=== PATIENT | female | born 1995 | race Caucasian/White ===

== ENCOUNTER 2024-04-27 08:06 | Emergency (ER) | payer MEDICAID, SELFPAY ==
[2024-04-27 08:14] VITALS: BP 136/104; PULSE 82; RESP 18; TEMP 37.1; O2SAT 99; BMI 30.7
--- NOTE | 2024-04-27 08:21 | CRLHL7_ITS ---
For Patients: As a result of the Cures Act, medical imaging exams and procedure reports are released immediately into your electronic medical record. You may view this report before your referring provider. If you have questions, please contact your health care provider. INDICATION: Injury, not otherwise specified. COMPARISON: None available. TECHNIQUE: Views: 3 FINDINGS: Mineralization: Normal. Alignment: Normal. Bones and Joints: No fracture is identified. Soft Tissues: Unremarkable. IMPRESSION: No acute traumatic injury is identified. Dictated by Paul Steele MD @ 04/27/2024 8:48:27 AM (Electronically Signed)
--- NOTE | 2024-04-27 08:23 | ED_ITS ---
HPI - Extremity Injury (Lower) General Chief Complaint: Extremity Pain/Injury, Lower Stated Complaint: LT big toe injury Time Seen by Provider: 04/27/24 08:17 History of Present Illness HPI Narrative: This 28-year-old female comes in with an injury to her left foot. She states that she was barefoot and attempted to step on the dog's leash as the dog was running away. They 80 lb dog yanked on the leash and she has an injury to her left foot. The leash wrapped from the bottom of her foot around to the top through the web space between the great toe and the 2nd toe and across the lateral aspect of her foot. She has superficial abrasion and erythema where the leash rubbed on her skin. She is ambulatory. She does not report any other injury. Related Data Home Medications ?Medication ?Instructions ?Recorded ?Confirmed No Known Home Medications 04/27/24 04/27/24 Allergies Allergy/AdvReac Type Severity Reaction Status Date / Time No Known Drug Allergies Allergy Verified 04/27/24 08:17 Review of Systems Status of ROS: Reports: 10 or more systems reviewed and unremarkable except as noted in History and below Narrative: Constitutional: No fevers, no weight gain or loss. Eyes: No discharge. No vision changes. HENT: No congestion, no sore throat, no ear pain. Cardiovascular: No chest pain, no palpitations. Respiratory: No shortness of breath, no wheezes, no cough. Gastrointestinal: No abdominal pain, no vomiting, no diarrhea. Genitourinary: No dysuria, no hematuria. Musculoskeletal: Normal range of motion. Skin: No rashes, no pruritis. Neurological: No dizziness, weakness, sensory change, speech change. Endo/Heme/Allergies: No bruising or bleeding. No polydipsia. Pysch: no suicidality, no anxiety, no insomnia. All other systems reviewed and are negative. Exam Narrative: Exam Narrative: Constitutional: Well-developed, well-nourished, no acute distress. HEENT: Normocephalic, atraumatic. Neck: Normal range of motion. Nontender. Supple. Heart: Regular. No murmurs. Normal rate. Intact distal pulses. Lungs: Clear to auscultation. No chest discomfort. No wheezes, rhonchi, or rales. Abdomen: Normal bowel sounds. Nontender. No rebound tenderness. Genitalia: Deferred. Back: No midline tenderness. Normal range of motion. Extremities: Normal range of motion. The superficial abrasion on the dorsal aspect of the left foot. No laceration. No swelling or sign of deformity. Skin: Intact. No rash. Warm. No erythema or pallor. Neurologic: No altered sensation. No weakness. Alert and oriented. Psychiatric: No suicidality. No anxiety or depression. No insomnia. Nursing notes and vitals signs are reviewed. Const: Vital Signs, click to edit/add: Vital Signs - 24 hr 04/27/24 08:14 Temperature 98.7 F Pulse Rate [Left P ulse Oximeter] 82 Respiratory Rate 18 Blood Pressure [Le ft Upper Arm] 136/104 H Pulse Oximetry 99 Oxygen Delivery Me thod Room Air Course Vital Signs Vital signs: Initial Vital Signs Temperature 98.7 F 04/27/24 08:14 Temperature Source Temporal Artery Scan 04/27/24 08:14 Pulse Rate 82 04/27/24 08:14 Pulse Rhythm Regular 04/27/24 08:14 Pulse Strength 3+ Normal 04/27/24 08:14 Respiratory Rate 18 04/27/24 08:14 Blood Pressure 136/104 H 04/27/24 08:14 Blood Pressure Mean 114 H 04/27/24 08:14 Blood Pressure Position Sitting 04/27/24 08:14 Pulse Oximetry 99 04/27/24 08:14 Oxygen Delivery Method Room Air 04/27/24 08:14 Vital Signs Temperature 98.7 F 04/27/24 08:14 Pulse Rate 82 04/27/24 08:14 Respiratory Rate 18 04/27/24 08:14 Blood Pressure 136/104 H 04/27/24 08:14 Pulse Oximetry 99 04/27/24 08:14 Oxygen Delivery Method Room Air 04/27/24 08:14 Temperature 98.7 F 04/27/24 08:14 Pulse Rate 82 04/27/24 08:14 Respiratory Rate 18 04/27/24 08:14 Blood Pressure 136/104 H 04/27/24 08:14 Pulse Oximetry 99 04/27/24 08:14 Oxygen Delivery Method Room Air 04/27/24 08:14 MDM - Extremity Injury (Lower) MDM Narrative Medical decision making narrative: This patient comes in for evaluation of an injury to her left foot. X-ray imaging is negative for any acute findings. The patient has an abrasion across the dorsal aspect of her foot that does not need any repair or retention. There is no bleeding from this wound. The abrasion is superficial. She is ambulatory. She did receive an Carlos Alberto wrap. She will use [id number] medicines as needed and directed. Imaging Data XR L Foot: Radiologist's impression: No acute traumatic injury is identified. Discharge Plan Discharge Clinical Impression: Foot injury Patient Disposition: Home, Self-Care Condition: Stable Additional Instructions: Increase activity as tolerated. Use [id number] medicines as needed and directed. Follow up with MD as needed. Prescriptions: No Action No Known Home Medications Follow Up/Referrals: Provider,Not a Local [Primary Care Provider] - Stand Alone Forms: Talking Data Info Instructions
== END 2024-04-27 09:29 | disposition home or self-care (01) ==
PROVIDERS: Emergency Provider Emergency Medicine Emergency Medical Services
DX: M79.672 Pain in left foot (principal); W22.8XXA Striking against or struck by other objects, initial encounter
CPT/HCPCS: 73630; 99283; 99284

== ENCOUNTER 2024-08-15 12:42 | Outpatient (CLI) | payer MEDICAID, SELFPAY ==
--- NOTE | 2024-08-15 13:00 | CRLHL7_ITS ---
For Patients: As a result of the Century Cures Act, medical imaging exams and procedure reports are released immediately into your electronic medical record. You may view this report before your referring provider. If you have questions, please contact your health care provider. INDICATION: First trimester scan, establish dates. COMPARISON: None. TECHNIQUE: Real-time vazquez-scale imaging of the pelvis was performed. FINDINGS: Sonographic imaging demonstrates a single living intrauterine gestation. The embryo demonstrates a regular cardiac rate measuring 176 beats per minute. The embryo`s crown-rump length measurement of 2.6 cm corresponds to a gestational age of 9 weeks 3 days with a sonographic due date of 03/17/2025. There is a normal-appearing yolk sac. There are no gross abnormalities noted within the embryo at this early state of development. The gestational sac has a normal appearance. There is no evidence of a perigestational hemorrhage. The amount of fluid within the sac appears appropriate for gestational age. The cervix is closed. The myometrium appears normal. The ovaries are of normal size. Corpus luteal cyst right ovary. There are no suspicious fluid collections noted in the cul-de-sac. IMPRESSION: Single living intrauterine with sonographic gestational age 9 weeks 3 days and sonographic due date 03/17/2025. Dictated by Jelani Fierro MD @ 08/15/2024 1:33:09 PM (Electronically Signed)
== END 2024-08-15 12:43 | disposition home or self-care (01) ==
LOC: US 12:44
PROVIDERS: Visit Provider Physician Assistant
DX: Z34.91 Encounter for supervision of normal pregnancy, unspecified, first trimester (principal); Z3A.09 9 weeks gestation of pregnancy
CPT/HCPCS: 76817

== ENCOUNTER 2024-08-15 15:07 | Outpatient (CLI) | payer MEDICAID, SELFPAY ==
[2024-08-15 22:30] LABS: Chlamydia DNA Amplified* NOT DETECTED (No Detected); GC DNA Amplified* NOT DETECTED (No Detected)
[2024-08-18 09:14] LABS: HPV Source Cervix; HPV, High Risk by TMA Not Detected
== END 2024-08-15 15:08 | disposition home or self-care (01) ==
PROVIDERS: Visit Provider Physician Assistant
DX: Z34.81 Encounter for supervision of other normal pregnancy, first trimester (principal); Z67.10 Type A blood, Rh positive
CPT/HCPCS: 83020; 83021; 85660; 86592; 86703; 86704; 86706; 86762; 86787; 86803; 86850; 86900; 86901; 87086; 87340; 87491; 87591; 87624; 87625; 88141; 88142

== ENCOUNTER 2024-10-27 12:12 | Outpatient (CLI) | payer MEDICAID, SELFPAY ==
--- NOTE | 2024-10-27 12:15 | CRLHL7_ITS ---
For Patients: As a result of the Century Cures Act, medical imaging exams and procedure reports are released immediately into your electronic medical record. You may view this report before your referring provider. If you have questions, please contact your health care provider. INDICATION: 2nd trimester anatomical survey. TECHNIQUE: Ultrasound OB pelvis transabdominal. Real-time vazquez-scale imaging of the fetus was performed as well as color Doppler analysis of the umbilical artery. COMPARISON: Ob ultrasound 08/15/2024 FINDINGS: Intrauterine gestation: Single. heart rate: Regular, 139 bpm. presentation: Variable. Placenta: Anterior, without previa. Cervix: 4.3 cm and closed. Amniotic fluid: 5.6 cm deepest pocket. Biometry: Biparietal diameter: 4.7 cm, 20 week 2 days. Head circumference: 17.5 cm, 20 weeks 0 days. Abdominal circumference: 15.5 cm, 20 weeks 5 days. Femoral length: 3.3 cm, 20 week 1 day. EFW: 352.3 gm, 61 %. Anatomical Survey: 4 chamber heart: Visualized. Stomach: Visualized. Kidneys: Visualized. Bladder: Visualized. Spine: Visualized. Sacrum: Visualized. 4 extremities: Visualized. Cord insertion: Visualized. 3V cord: Visualized. Face: Visualized. Nose: Visualized. Lips: Visualized. Cerebellum: Visualized. Cisterna Magna: Visualized. Lateral ventricles: Visualized. IMPRESSION: 1. Single viable intrauterine . Gestational age by ultrasound of 20 weeks 4 days with JUAN J of 03/12/2025. weight in the 61%. 2. No intrinsic abnormalities noted on anatomic survey. Dictated by Katharine Howell MD @ 10/30/2024 12:27:44 PM (Electronically Signed)
== END 2024-10-27 12:13 | disposition home or self-care (01) ==
LOC: US 12:12
PROVIDERS: Visit Provider Obstetrics & Gynecology
DX: Z34.92 Encounter for supervision of normal pregnancy, unspecified, second trimester (principal); Z3A.20 20 weeks gestation of pregnancy
CPT/HCPCS: 76805

== ENCOUNTER 2024-12-22 07:59 | Outpatient (CLI) | payer MEDICAID, SELFPAY | END 2024-12-22 08:00 | disposition home or self-care (01) | LOC: NFLDREF 12-29 00:19 | PROVIDERS: Visit Provider Obstetrics & Gynecology | DX: Z34.83 Encounter for supervision of other normal pregnancy, third trimester (principal) | CPT/HCPCS: 86592 ==

== ENCOUNTER 2025-01-22 13:11 | Outpatient (CLI) | payer MEDICAID, SELFPAY ==
--- NOTE | 2025-01-22 14:00 | CRLHL7_ITS ---
For Patients: As a result of the Century Cures Act, medical imaging exams and procedure reports are released immediately into your electronic medical record. You may view this report before your referring provider. If you have questions, please contact your health care provider. OBSTETRICAL ULTRASOUND, 01/22/2025 JUAN J by LMP: 03/15/2025. GA: 32 w, 4 d. Single. Comparison: 10/27/2024. INDICATION: Uterine size date discrepancy. TECHNIQUE: Real time vazquez scale imaging of the fetus was performed. Transabdominal CERVIX: Not visualized. POSITIONING: Vertex. AMNIOTIC FLUID: 27.2 cm. CONY. 10.4 SDP (N: greater than 2 x 1 cm) PLACENTA: Technique: Transabdominal. PLACENTA POSITION: Anterior. DOPPLER: heart rate: 149 bpm. BIOMETRY: BPD: 8.4 cm. 33 w, 5 d, 76 percent. HC: 30.2 cm. 33 w, 4 d, 36 percent. AC: 29.5 cm. 33 w, 4 d, 77 percent. FL: 5.9 cm. 30 w, 6 d, 6 percent. FL/AC ratio: 20.05 percent. HC/AC ratio: 1.02. EFW: 2046 g. Weight: 4 lbs, 8 oz. age by this US: 33 w, 0 d. JUAN J by this US: 03/12/2025. Percentile by JUAN J: 46 percent. IMPRESSION: 1. Sonographic gestational age 33 weeks 0 days and sonographic due date 03/12/2025. Good correlation with dates. Normal interval growth. 2. Estimated weight 46th percentile. Abdominal circumference 77th percentile. 3. Amniotic fluid single deepest pocket 10.4 cm. CONY 27.2 cm. Jelani Fierro M.D. Diagnostic Radiologist [email or web address] JR/Dictated by: Jelani Fierro MD @ 01/23/2025 5:31:00 AM (Electronically Signed)
== END 2025-01-22 13:12 | disposition home or self-care (01) ==
LOC: US 13:12
PROVIDERS: Visit Provider Obstetrics & Gynecology
DX: O26.843 Uterine size-date discrepancy, third trimester (principal); Z3A.33 33 weeks gestation of pregnancy
CPT/HCPCS: 76816

== ENCOUNTER 2025-02-08 12:54 | Outpatient (CLI) | payer BC, SELFPAY ==
--- NOTE | 2025-02-08 13:00 | CRLHL7_ITS ---
For Patients: As a result of the Cures Act, medical imaging exams and procedure reports are released immediately into your electronic medical record. You may view this report before your referring provider. If you have questions, please contact your health care provider. OB ULTRASOUND BIOPHYSICAL PROFILE JUAN J by LMP: 03/15/2025. GA: 35 w, 0 d. Single. Comparison: Ultrasound 01/22/2025, 10/27/2024, 08/15/2024. INDICATION: Polyhydramnios. TECHNIQUE: Real time vazquez scale imaging of the fetus was performed. Transabdominal imaging performed. CERVIX: Not visualized. POSITIONING: Vertex. AMNIOTIC FLUID: 32.2 cm. 10.7 cm SDP (N: greater than 2 x 1 cm) BIOPHYSICAL PROFILE: Gross body movements: 2. tone: 2. Respiratory activity: 2. Amniotic fluid: 2 cm SDP (N: greater than 2 x 1 cm). Total score: 8. PLACENTA: Technique: Transabdominal. PLACENTA POSITION: Anterior. DOPPLER: heart rate: 131 bpm. IMPRESSION: 1. Normal biophysical profile 8/8. 2. Amniotic fluid single deepest pocket 10.7 cm. CONY 32.2 cm. Jelani Fierro M.D. Diagnostic Radiologist [email or web address] SP/Dictated by: Jelani Fierro MD @ 02/08/2025 4:33:00 PM (Electronically Signed)
== END 2025-02-08 12:55 | disposition home or self-care (01) ==
LOC: US 12:55
PROVIDERS: Visit Provider Obstetrics & Gynecology
DX: O40.3XX0 Polyhydramnios, third trimester, not applicable or unspecified (principal); Z3A.35 35 weeks gestation of pregnancy
CPT/HCPCS: 76819

== ENCOUNTER 2025-02-16 12:05 | Outpatient (CLI) | payer BC, SELFPAY ==
--- NOTE | 2025-02-16 12:15 | CRLHL7_ITS ---
For Patients: As a result of the Cures Act, medical imaging exams and procedure reports are released immediately into your electronic medical record. You may view this report before your referring provider. If you have questions, please contact your health care provider. OBSTETRICAL ULTRASOUND ??? BIOPHYSICAL PROFILE, 02/16/2025 INDICATION: Moderate polyhydramnios. CLINICAL HISTORY: JUAN J by LMP: 03/15/2025 Gestational Age: 36 weeks 1 day COMPARISON: 02/08/2025, 01/22/2025, 10/27/2024. TECHNIQUE: Real-time vazquez-scale transabdominal imaging of the fetus was performed. FINDINGS: Fetus: Single positioning: Vertex Amniotic Fluid: CONY: 31.5 cm 13.6 cm SDP BIOPHYSICAL PROFILE: Gross body movements: 2 tone: 2 Respiratory activity: 2 Amniotic fluid SDP: 2 Total score: 8 Placenta technique: Transabdominal Placenta position: Anterior heart rate: 163 bpm IMPRESSION: 1. Normal biophysical profile score of 8/8. 2. Amniotic fluid single deepest pocket 13.6 cm. CONY 31.5 cm. JELANI SUÁREZ M.D. Diagnostic Radiologist [email or web address] Transcribed: 3:[address]/Dictated by: Jelani Suárez MD @ 02/16/2025 1:07:00 PM (Electronically Signed)
== END 2025-02-16 12:06 | disposition home or self-care (01) ==
LOC: US 12:05
PROVIDERS: Visit Provider Obstetrics & Gynecology
DX: O40.3XX0 Polyhydramnios, third trimester, not applicable or unspecified (principal); Z3A.36 36 weeks gestation of pregnancy
CPT/HCPCS: 76819; 87081; 87653

== ENCOUNTER 2025-02-19 14:15 | Outpatient (CLI) | payer BC, SELFPAY ==
[2025-02-19 14:28] VITALS: PULSE 130; O2SAT 98
[2025-02-19 14:29] VITALS: RESP 16; TEMP 36.8
[2025-02-19 14:33] VITALS: PULSE 117; O2SAT 99
[2025-02-19 14:36] VITALS: BP 119/74; PULSE 99
[2025-02-19 14:38] VITALS: PULSE 120; O2SAT 99
[2025-02-19 14:43] VITALS: PULSE 109; O2SAT 98
--- NOTE | 2025-02-19 17:24 | PC.OBNST ---
NST Note NST Note Start: 02/19/25 14:24 Freq: ONCE Status: Active Protocol: Document 02/19/25 17:21 VMM (Rec: 02/19/25 17:23 VMM No Response) NST Note 3 Para (# of births) 1 EDC 02/18/20 Gestational Age In 301 Weeks & 1 Days Weeks & Days Reactive Yes Appropriate for Yes Gestational Age KELLY Enamorado, RN Date 02/19/25 Reactive Yes Appropriate for Yes Gestational Age KELLY Rogers RN Date 02/19/25 OB NST charge Yes Complete NST Note Yes via Write Note The provider's electronic signature indicates the NST is reactive/appropriate for gestational age. *Note to provider: If an addendum is required, open the patient's chart and click on the note under the Nurse/Allied Health tab.
--- NOTE | 2025-04-01 16:04 | PC.OBNST ---
Addendum entered and electronically signed by Milly Rg M.D. 04/04/25 11:55: Dating is incorrect. JUAN J: 03/15/25 Her gestational age on 02/19/25 was 36w4d. Original Note: NST Note NST Note Start: 02/19/25 14:24 Freq: ONCE Status: Discharge Protocol: Document 02/19/25 17:21 VMM (Rec: 02/19/25 17:23 VMM No Response) NST Note 3 Para (# of births) 1 EDC 02/18/20 Gestational Age In 301 Weeks & 1 Days Weeks & Days Reactive Yes Appropriate for Yes Gestational Age RN Lalit Enamorado, RN Date 02/19/25 Reactive Yes Appropriate for Yes Gestational Age KELLY Rogers RN Date 02/19/25 OB NST charge Yes Complete NST Note Yes via Write Note The provider's electronic signature indicates the NST is reactive/appropriate for gestational age. *Note to provider: If an addendum is required, open the patient's chart and click on the note under the Nurse/Allied Health tab.
== END 2025-02-19 17:20 | disposition home or self-care (01) ==
LOC: OB OUT 14:15 → OB 14:16
PROVIDERS: Visit Provider Obstetrics & Gynecology
DX: O40.3XX0 Polyhydramnios, third trimester, not applicable or unspecified (principal); Z3A.37 37 weeks gestation of pregnancy
CPT/HCPCS: 59025; G0463

== ENCOUNTER 2025-02-22 13:02 | Outpatient (CLI) | payer BC, SELFPAY ==
--- NOTE | 2025-02-22 13:00 | CRLHL7_ITS ---
For Patients: As a result of the Cures Act, medical imaging exams and procedure reports are released immediately into your electronic medical record. You may view this report before your referring provider. If you have questions, please contact your health care provider. OBSTETRICAL ULTRASOUND ??? BIOPHYSICAL PROFILE, 02/22/2025 INDICATION: Moderate polyhydramnios. CLINICAL HISTORY: LMP: 06/08/2024 JUAN J by LMP: 03/15/2025 Gestational Age: 37 weeks 0 days COMPARISON: 02/16/2025, 02/08/2025, 01/22/2025. TECHNIQUE: Real-time vazquez-scale transabdominal imaging of the fetus was performed. FINDINGS: Fetus: Single Cervix: Not visualized positioning: Vertex Amniotic Fluid: CONY: 21.8 cm 7.8 cm SDP BIOPHYSICAL PROFILE: Gross body movements: 2 tone: 2 Respiratory activity: 2 Amniotic fluid SDP: 2 Total score: 8 Placenta technique: Transabdominal Placenta position: Anterior heart rate: 142 bpm COMMENTS: 02/22/2025: CONY 21.8, SDP 7.8 02/16/2025: CONY 31.5, SDP 13.6 02/08/2025: CONY 32.2, SDP 10.7 01/22/2025: CONY 27.2, SDP 10.4 IMPRESSION: 1. Normal biophysical profile score of 8/8. 2. Sonographic gestational age 36 weeks 4 days and sonographic due date 03/18/2025. Good correlation with dates. Normal interval growth. 3. Estimated weight is 45th percentile. Abdominal circumference is 62nd percentile. 4. Amniotic fluid single deepest pocket is 7.8 cm. CONY is 21.8 cm. JELANI SUÁREZ M.D. Diagnostic Radiologist [email or web address] Transcribed: 3:[address]/Dictated by: Jelani Suárez MD @ 02/22/2025 3:27:00 PM (Electronically Signed)
== END 2025-02-22 13:03 | disposition home or self-care (01) ==
LOC: US 13:03
PROVIDERS: Visit Provider Obstetrics & Gynecology
DX: O40.3XX0 Polyhydramnios, third trimester, not applicable or unspecified (principal); Z3A.37 37 weeks gestation of pregnancy
CPT/HCPCS: 76816; 76819

== ENCOUNTER 2025-02-25 02:10 | Inpatient (IN) | payer BC, SELFPAY ==
[2025-02-25] VITALS (53 sets, daily range): BP systolic 112–145; BP diastolic 63–91; PULSE 73–115; RESP 16–18; TEMP 36.8–37.2; O2SAT 86–100; BMI 36.5
--- NOTE | 2025-02-25 02:13 | PC.OBNST ---
NST Note NST Note Start: 02/24/25 23:24 Freq: ONCE Status: Active Protocol: Document 02/25/25 00:20 SJBianca (Rec: 02/25/25 00:29 SJ Desktop) NST Note 3 Para (# of births) 1 EDC 03/15/25 Gestational Age In 37 Weeks & 3 Days Weeks & Days Patient Presented Contractions/cramping with Complaint(s) of Reactive Yes Appropriate for Yes Gestational Age RN Nimo RN Date 02/25/25 Reactive Yes Appropriate for Yes Gestational Age RN Omega RN Date 02/25/25 OB NST charge Yes Complete NST Note Yes via Write Note The provider's electronic signature indicates the NST is reactive/appropriate for gestational age. *Note to provider: If an addendum is required, open the patient's chart and click on the note under the Nurse/Allied Health tab.
[2025-02-25 03:05] LABS: Hematocrit 32.1 % (33.0-51.0); Hemoglobin* 10.5 gm/dL (12.0-16.0); Immature Granulocytes Abs Auto 0.00 K/uL (0.00-0.30); Immature Granulocytes Pct Auto 0.2 %; Lymphocytes Absolute Auto 2.60 K/uL (0.90-2.90); Mean Corpuscular HGB Conc 33 gm/dL (32-36); Mean Corpuscular Hemoglobin 28 pg (26-34); Mean Corpuscular Volume 85 fL (80-100); RDW Coefficient of Variation % 13.9 % (11.5-15.5); Red Blood Count 3.77 m/uL (4.00-5.20); White Blood Count* 12.59 K/uL (4.50-11.00)
[2025-02-25 03:06] LABS: Slide Review Reflex No
[2025-02-25] MEDS: LACTATED RINGERS 1000 ML 1,000 ML 1100 ML IV ×2 (03:36→04:43)
[2025-02-25] MEDS: ROPIVACAINE 0.2% 100 ml 100 ML 12 MG EPIDURAL (04:21)
[2025-02-25] MEDS: LIDOCAINE 2% (PF) 5 ML VIAL EPIDURAL (04:21)
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
[2025-02-25] MEDS: ROPIVACAINE 0.2 % PF 10 ML INJ 20 MG EPIDURAL (05:35)
--- NOTE | 2025-02-25 05:57 | PM.OBHPLI ---
OB - H&P: HPI Labor/Induction History of Present Illness Time Seen by Provider: 05:57 Date Seen: 02/25/25 Chief Complaint: The patient is a 29 year old 3 para 1 at 37 weeks gestation by LMP, who presented for spontaneous onset of labor. is complicated by polyhydramnios (seemingly resolved on 02/22 US), short femurs noted on ultrasound (low risk NIPT), tobacco use disorder, depression/anxiety, asthma and obesity. Her history and physical was documented by Dr. Tovar in 711, please see this for complete details. Patient notes onset of regular/painful contractions the evening of 02/24. She presented just after midnight, where cervix was 5/80/-1. She in spontaneous cervical change with expectant management and was admitted for labor. No vaginal bleeding or leaking of fluid. Endorses active movement. Chief complaint: maternity Narrative: Salma Gonzales is a 29 year old female Specific Issues/Plans Partner: Adventclary Griggs Daughter: [place] Baby: Girl!German H&P: 02/16 Dr. Tovar # depression and anxiety, PHQ-9: 11 and adam 7:16 at new OB Initiated sertraline 50 mg daily 09/13/24: Repeat PHQ-9: 5 and adam-7: 6 # asthma, mild intermittent. Rare albuterol use # obesity, BMI 30.7 Hemoglobin A1c: 5.2% # Hep B Nonimmune: declined booster during , low risk. #?RUQ pain where US was ordered but not completed - resolved. #Low milk supply hx - referral on 01/22 #Moderate polyhydramnios as of 02/08; resolved on 02/22 - weekly BPPs, ordered -q.4 weeks growth, ordered -recommended delivery timin-39.6 weeks # Smoker of 1/2 PPD #Short femurs at 32 weeks - Normal FAS, low risk NIPT. Pt counseled on FL, declined further intervention. - Growth US 01/17: EFW 2046g at 46%ile, AC 77%ile. BPD 76%ile, HC 36%ile, FL 6%ile. MVP 10.4, CONY 27.2cm. -02/16: CONY 31.5, SDP 13.6 - US for MVP/CONY q2w - testing sheet completed - Growth at 38 weeks - IOL at 39 weeks Imaging: FAS 10/27: EFW 352g at 61%ile. AC 62%ile. Visualized anatomy is normal. Anterior placenta, 6.3cm from os. MVP 5.6cm. Cx length4.3cm. FHR 139bpm. 01/22 growth US: EFW 2046g at 46%ile, AC 77%ile. BPD 76%ile, HC 36%ile, FL 6%ile. MVP 10.4, CONY 27.2cm. 02/08/25: CONY 32.2, SDP 10.7 02/16: SDP 13.6 cm. CONY 31.5 cm. 02/22/2025: Cephalic, CONY 21.8, SDP 7.8, BPP 8/8, EFW 45%, AC 62%. Vaccinations: COVID: 08/15/24 Flu: 08/15/24 Tdap: 01/08/25 32 week mental health: PHQ9: 2, GAD7: 1 Last pap: 08/15/24 Meds Home Medications and Allergies Home Medications ?Medication ?Instructions ?Recorded ?Confirmed ?Type [id number] 3 fatty no.1 27 1 cap PO 08/15/24 02/22/25 History mg-1 mg-300 mg capsule acetaminophen 500 mg tablet 1,000 mg PO Q6H PRN 10/11/24 02/24/25 History (Tylenol Extra Strength) sertraline 50 mg tablet 50 mg PO QDAY #90 tabs 10/11/24 02/24/25 Rx Allergies Allergy/AdvReac Type Severity Reaction Status Date / Time No Known Drug Allergies Allergy Verified 02/22/25 08:33 OB - H&P: Exam Physical Exam: Vital signs: Temp Pulse Resp BP Pulse Ox 98.2 F 85 18 113/68 100 02/25/25 05:43 02/25/25 05:40 02/25/25 05:43 02/25/25 05:40 02/25/25 05:53 Narrative: General: Alert and oriented, no acute distress Psych: Appropriate mood and affect Abdomen: Gravid. EFW 2980 g at 45% by ultrasound on 02/22. Cervix: 5/80/-1 on admission, 8.5/100/0 by RN exam at 0500. Repeat exam by myself now is 8/100/0, BBOW palpated. Vertex. After discussion of risks/benefits, consent for AROM obtained. AROM performed with return of moderate volume clear fluid. NST: Category 1 primarily, intermittent category 2. At present, baseline is 130 beats per minute, moderate variability, accelerations present. Possible late deceleration 0529. Matthews: Armando about every 3 minutes OB - Results Labs Labs: Short CBC 02/25/25 Range/Units 02:53 WBC 12.59 H (4.50-11.00) K/uL Hgb 10.5 L (12.0-16.0) gm/dL Hct 32.1 L (33.0-51.0) % Plt Count 362 (140-440) K/uL OB - Problem Based A/P Additional Plan (1) Polyhydramnios: Status: Acute (2) Anemia affecting : Problem details: Recheck hemoglobin at 34 weeks Status: Acute (3) At risk for difficulty: Status: Acute (4) care: Status: Acute (5) Asthma: Status: Acute (6) Depression with anxiety: Status: Acute Plan Salma is a 29 year old at 37 weeks gestation by LMP, who presented for spontaneous onset of labor. is complicated by polyhydramnios (seemingly resolved on 02/22 US), short femurs noted on ultrasound (low risk NIPT), tobacco use disorder, depression/anxiety, asthma and obesity. Her history and physical was documented by Dr. Tovar on 02/16, please see this for complete details. Patient is admitted for spontaneous onset of labor. She has made spontaneous cervical change from 5-8 cm dilation. She is now comfortable with an epidural in place. Consented for an exam with consideration for amniotomy. Cervix is 8/100/0, where AROM was performed and was uncomplicated at 0552. Large volume amniotic fluid noted, consistent with suspected polyhydramnios despite her last US. With head well applied to cervix, she is 8.5/100 and nearly +1. - Anticipate next exam in 2 hours, sooner as clinically indicated - BT A+ - GBS negative
[2025-02-25] MEDS: OXYTOCIN 30 unit/500 ML in NS 30 UNIT/500 ML BAG 300 UNIT IVPB (06:48)
--- NOTE | 2025-02-25 07:14 | W.PM.VAGD1_ITS ---
Procedure Procedure Done: Global Procedure Details: Normal spontaneous vaginal delivery Events: Polyhydramnios Intrapartal Events: Labor Augmentation Delivery augmentation: rupture of membranes Delivery monitor: internal FHT Route of delivery: Laceration description: None Estimated blood loss (mL): 250 Anesthesia type: Epidural Disposition: floor Complications: None Narrative: Salma is a 29 year old at 37 weeks gestation by LMP admitted for spontaneous onset of labor. is complicated by polyhydramnios (seemingly resolved on 02/22 US), short femurs noted on ultrasound (low risk NIPT), tobacco use disorder, depression/anxiety, asthma and obesity. heart tones on admission were category 1. Her labor progressed to active with expectant management, then augmentation was performed with AROM - large volume clear fluid noted consistent with polyhydramnios. Epidural was utilized for pain management. heart tones during active labor were category 1 and 2 for rare decelerations (single late appearing deceleration, intermittent variables). She was complete at 0624 and started pushing at 0625. She made excellent descent throughout the second stage of labor, and had a normal spontaneous vaginal delivery at 0644. heart tones during second stage of labor were category 2 for recurrent variable decelerations that at times were prolonged, prompting placement of an FSE. Maternal repositioning and IV fluid bolus and active management a maternal pushing efforts ensued. Between decelerations, heart rate was noted to recover to a normal baseline with moderate variability. A prolonged deceleration occurred at time of , where head delivered on the next contraction. Baby delivered OA, restituted PAOLA and the anterior and posterior shoulders delivered without difficulty. Nuchal cord: absent. Adequate tone and grimace noted, where stimulation was performed on maternal abdomen resulting in spontaneous crying and improved color. FSE was removed immediately after delivery. The cord was clamped and cut after delayed cord clamping. Active management of the third stage occurred with IV pitocin and gentle cord traction and the placenta delivered spontaneous and intact at 0700. Cord gases sent: no Cord blood sent for ABO: no details: - Liveborn female fetus at 0644 - weight pending at this time - APGARs were 8 and 9 at 1 and 5 minutes respectively Perineum and vagina were inspected, and the following lacerations were noted: No perineal laceration, small left labial abrasion that was hemostatic. No repair completed. Excellent hemostasis and uterine tone were noted. The following counts were correct: sponges, needles, instruments. Mother and in stable condition following the . [place] Infant Infant Gender: Female presentation: vertex Placental Delivery Description: Spontaneous Cord Description: 3 Vessels
[2025-02-25 09:10] LABS: Hematocrit 30.2 % (33.0-51.0); Hemoglobin* 10.1 gm/dL (12.0-16.0); Mean Corpuscular HGB Conc 33 gm/dL (32-36); Mean Corpuscular Hemoglobin 28 pg (26-34); Mean Corpuscular Volume 85 fL (80-100); Red Blood Count 3.57 m/uL (4.00-5.20); White Blood Count* 14.55 K/uL (4.50-11.00)
[2025-02-25 09:16] LABS: Slide Review Reflex No
[2025-02-25 09:27] LABS: Alanine Aminotransferase* 26 U/L (4-35); Aspartate Amino Transferase* 26 U/L (12-35); Blood Urea Nitrogen* 8 mg/dL (5-24); Creatinine* 0.5 mg/dL (0.5-1.5); Est. Creatinine Clearance* 156.82; Estimated Glomerular Filt Rate 131 ml/min
[2025-02-26 03:40] VITALS: BP 124/76; PULSE 73; RESP 12; TEMP 36.6; O2SAT 97
[2025-02-26 06:20] LABS: Hemoglobin* 10.0 gm/dL (12.0-16.0)
[2025-02-26 08:45] VITALS: BP 111/70; PULSE 75; RESP 16; TEMP 36.4; O2SAT 98
--- NOTE | 2025-02-26 09:54 | PM.OBPNVD1 ---
OB - PN:Subj Subjective Date Seen: 02/26/25 Narrative: Salma is a 29 y.o. who was admitted to L & D for labor.? She had an uncomplicated NVD.? ?? The patient feels well.? The pain is well controlled with current medications.? She has no new complaints.? She is formula and reports things are going well, although baby has been spitting up frequently. the patient has done well.? Vitals have been stable.? She has remained afebrile.? Has a good appetite, is tolerating a general diet.? She is voiding without difficulty.? She is passing gas and has not had a bowel movement.? She is ambulating and denies any dizziness.? Has Small amount of rubra lochia.? OB - PN: Obj Exam Physical Exam: Vital signs: Temp Pulse Resp BP Pulse Ox O2 Del Method 97.5 F L 75 16 111/70 98 Room Air 02/26/25 08:45 02/26/25 08:45 02/26/25 08:45 02/26/25 08:45 02/26/25 08:45 02/26/25 08:45 Narrative: GENERAL APPEARANCE:? normal affect, alert, no distress? MOOD:? appropriate? HEENT: normocephalic, neck supple, full ROM? CHEST:? Symmetrical chest wall movement.? Normal respiratory effort.? Clear to auscultation ? HEART:? regular rate and rhythm? ABDOMEN:? soft, non-tender. Uterine fundus is firm, at Umbilicus, Midline and is appropriate for the stage of recovery.? Bowel sounds present.? PERINEUM:? mild edema of the perineum, intact.? EXTREMITIES:? normal and trace edema? OB - PN: Obj Data Labs Labs: Laboratory Results - last 24 hr 02/26/25 05:50 Hgb 10.0 L OB - PN: A/P Delivery Assessment and Plan (1) care and examination immediately after delivery: Status: Acute (2) Polyhydramnios: Status: Acute (3) Anemia affecting : Problem details: Recheck hemoglobin at 34 weeks Status: Acute (4) At risk for difficulty: Status: Acute (5) Asthma: Status: Acute (6) Depression with anxiety: Status: Acute (7) Elevated blood pressure reading without diagnosis of hypertension: Problem details: 1 elevated BP while sitting for epidural, 1 in recovery not felt to be reliable (arm bent, talking on phone). PreE labs normal. Status: Acute Plan day: 1 Plan: routine care Comments: G 3 P 2 status post uncomplicated NVD??? 1.? Continue route PP cares? 2.? Formula feeding 3.? Anticipate discharge home tomorrow?
[2025-02-26] MEDS: DOCUSATE SODIUM 100 MG CAPSULE PO (10:05)
--- NOTE | 2025-02-26 10:07 | PM.ANPOST ---
Post Anesthesia Note Post Anesthesia Note Patient seen: Inpatient Respiratory Status: adequate Cardiovascular Status: adequate Mental Status: baseline Pain: adequate Temp: baseline Anesthetic awareness: N/A Complications: none Follow care: none
[2025-02-26 16:00] VITALS: BP 125/86; PULSE 88; RESP 18; TEMP 37.1; O2SAT 98
[2025-02-26] MEDS: SERTRALINE 50 MG TABLET PO (20:53)
[2025-02-26 21:00] VITALS: BP 118/77; PULSE 87; RESP 16; TEMP 36.8; O2SAT 98
[2025-02-27 04:20] VITALS: BP 127/82; PULSE 79; RESP 16; TEMP 36.8; O2SAT 98
--- NOTE | 2025-02-27 07:40 | P.DS_ITS ---
DS: Providers Provider Date Seen: 02/27/25 Date of admission: 02/25/25 02:10 Primary care physician: Not a Local Provider Admitting Clinician: Ольга Ritchie MD Attending Physician on discharge: Veronica DONATO Date of Discharge: 02/27/25 DS: Diagnosis Discharge Diagnosis (1) care and examination immediately after delivery: Status: Acute Exam Narrative: Exam Narrative: GENERAL APPEARANCE:? normal affect, alert, no distress MOOD:? appropriate CHEST:? clear to auscultation HEART:? regular rate and rhythm ABDOMEN:? soft, non-tender the uterine fundus is At Umbilicus, Midline and is appropriate for the stage of recovery. PERINEUM:?deferred EXTREMITIES:? normal and minimal edema Const: Vital Signs, click to edit/add: Vital Signs - 24 hr 02/26/25 08:45 02/26/25 16:00 02/26/25 21:00 Temperature 97.5 F L 98.7 F 98.2 F Pulse Rate [Blood Pressure Cuff] 75 88 87 Respiratory Rate 16 18 16 Blood Pressure [Le ft Arm] 111/70 125/86 118/77 Pulse Oximetry 98 98 98 Oxygen Delivery Me thod Room Air Room Air Room Air 02/27/25 04:20 Temperature 98.2 F Pulse Rate [Blood Pressure Cuff] 79 Respiratory Rate 16 Blood Pressure [Le ft Arm] 127/82 Pulse Oximetry 98 Oxygen Delivery Me thod Room Air OB - DS: Summary Hospital Course Hospital Course: Salma is a 29 y.o. G 3 P 2010 who was admitted to [facility] & [facility] for spontaneous labor.? She had a NVD that was uncomplicated. The patient feels well.? The pain is well controlled with current medications.? She has no new complaints.? She is bottle feeding and reports things are going well after switching to similac. the patient has done well.? Vitals have been stable.? She did have two intermittent BPS that were elevated but repeats were normal and she has been otherwise normotensive. She has remained afebrile.? Has a good appetite, is tolerating a general diet.? She is voiding without difficulty.? She is passing g as and has had a bowel movement.? She is ambulating and denies any dizziness.? Has small amount of rubra lochia. She is unsure what they want to do for prevention.? was complicated by polyhydramnios (seemingly resolved on 02/22 US), short femurs noted on ultrasound (low risk NIPT), tobacco use disorder, depression/anxiety, asthma and obesity.? Problems: none? ?? plan:? Discharge home with baby.? Follow up in 2 weeks and 6 weeks.? Bottlefeeding, may see if needed? Hgb 10. Iron supplement can be taken orally every other day for a couple of weeks to help replenish.? Peripartum Data delivery method: Vaginal Laceration description: None Episiotomy description: None complications: none Infant Gender: Female Infant Discharge Plan: Home Status at Discharge Overall status at discharge: patient is progressing back to baseline Time Spent with Patient Time attestation: Total time spent providing and/or coordinating discharge services: Time spent: Less than 30 minutes Discharge Plan Discharge Disposition: Home, Self-Care Date of Admission: 02/25/25 02:10 Attending Provider on Discharge: Lakshmi Meneses Primary Care Provider: Provider,Not a Local Condition: Stable Anticipated Discharge Date/Time: 02/27/25 12:00 Discharge Medications: Continued [id number] 3 fatty no.1 27-1-300 mg capsule 1 cap PO DAILY acetaminophen [Tylenol Extra Strength] 500 mg tablet 1,000 mg PO Q6H PRN sertraline 50 mg tablet 50 mg PO QDAY Qty: 90 1RF Discharge Orders: Discharge Order (Routine); Ordered 02/27/25 Ordered By: Lakshmi Meneses Patient Education: OB Over the Counter Medication Information, OB Vaginal/Bottle Feeding Additional Instructions: Discharge instructions were reviewed with the patient including signs and symptoms of infection and home going medications Nothing vaginally for 6 weeks: no tampons or intercourse Do not drive while taking narcotic pain medication(s) Off Work or School for 6 weeks Symptoms to report to doctor: * Bleeding that saturates more than one pad per hour * Passing clots larger than the size of a golf ball * Pain not relieved by prescribed medication * Fever above 100.4 degrees Fahrenheit * A foul vaginal odor * Difficulty in emotions, mood, and functions * Thoughts of hurting yourself and/or * Painful, reddened area in your breast * Any drainage, redness, or tenderness in your IV/epidural site * Severe headache that doesn't improve after taking medications * Changes in vision, including temporary loss of vision, blurred vision, and/or light sensitivity * Upper abdominal pain (usually under ribs on the right side) * Decrease in urination or painful, frequent urinating * Chest pain * Shortness of breath * Tenderness or pain with redness and/swelling in the calf(s) of your leg 2-week visit: discuss infant feeding concerns, review control options and screen for anxiety/depression. 6-week visit for an annual exam. consultation services are available to all mothers and babies for the first year after delivery.? To make an appointment, please call [phone]. Activity Level: Activity as Tolerated and No strenuous activity Discharge Diet: Regular Follow Up Appointments: [facility] [Provider Group] Forms: [facility] Info Instructions
[2025-02-27] MEDS: DOCUSATE SODIUM 100 MG CAPSULE PO (09:45)
[2025-02-27 09:46] VITALS: BP 130/84; PULSE 76; RESP 20; O2SAT 97
== END 2025-02-27 11:20 | disposition home or self-care (01) | DRG 560 ==
LOC: OB 07:05 → OB OUT 02-26 12:32 → OB 02-26 12:32
PROVIDERS: Absent Provider Obstetrics & Gynecology; Admitting Provider Obstetrics & Gynecology; Visit Provider Obstetrics & Gynecology
DX: O40.3XX0 Polyhydramnios, third trimester, not applicable or unspecified (principal); R03.0 Elevated blood-pressure reading, without diagnosis of hypertension; O99.02 Anemia complicating childbirth; D64.9 Anemia, unspecified; O99.344 Other mental disorders complicating childbirth; F41.8 Other specified anxiety disorders; J45.909 Unspecified asthma, uncomplicated; Z3A.37 37 weeks gestation of pregnancy; Z37.0 Single live birth
CPT/HCPCS: 01967; 36415; 59025; 82565; 84450; 84460; 84520; 85018; 85025; 85027; 86592; 86850; 86900; 86901; 94761; G0463; A9270; J2795; J7120; S4990

== ENCOUNTER 2025-03-02 15:37 | Outpatient (CLI) | payer BC, SELFPAY | END 2025-03-02 15:38 | disposition home or self-care (01) | PROVIDERS: Visit Provider Obstetrics & Gynecology | DX: R03.0 Elevated blood-pressure reading, without diagnosis of hypertension (principal) | CPT/HCPCS: 82565; 82570; 84156; 84450; 84460; 84520 ==

== ENCOUNTER 2025-03-04 10:04 | Outpatient (CLI) | payer BC, SELFPAY ==
[2025-03-04 10:11] VITALS: BP 130/84; PULSE 77; RESP 18; TEMP 37; O2SAT 99
[2025-03-04 10:24] LABS: Hematocrit 38.7 % (33.0-51.0); Hemoglobin* 12.4 gm/dL (12.0-16.0); Mean Corpuscular HGB Conc 32 gm/dL (32-36); Mean Corpuscular Hemoglobin 27 pg (26-34); Mean Corpuscular Volume 85 fL (80-100); Red Blood Count 4.54 m/uL (4.00-5.20); White Blood Count* 8.44 K/uL (4.50-11.00)
[2025-03-04 10:29] LABS: Slide Review Reflex No
[2025-03-04 10:41] LABS: Alanine Aminotransferase* 34 U/L (4-35); Aspartate Amino Transferase* 30 U/L (12-35); Blood Urea Nitrogen* 20 mg/dL (5-24); Creatinine* 0.8 mg/dL (0.5-1.5); Estimated Glomerular Filt Rate 103 ml/min
--- NOTE | 2025-03-06 10:02 | PM.OBLDTN ---
OB - Triage/Final Diagnosis Visit Information Time Seen by Provider: 11:00 Date Seen: 03/04/25 Date of evaluation: 03/04/25 Narrative: The patient is a 29 year old G3 para 2011 who is PPD#7 who presents to the center for blood pressure check and repeat pre-eclampsia labs. She was asked by CNM at discharge to monitor her BP due to blood pressure on the higher end of normal at discharge. At her nurse BP check on 03/02/25 BP were 160/100, 140/92. Pre-e labs that day was notable for AST of 39 and ALT of 37 where they had previously been wnl on 02/25/25. She presents today for a blood pressure check and repeat preeclampsia labs Blood pressure check: 130/84 Pre-eclampsia labs on 03/04/25: Hgb 12.4 Plt 437 Cr 0.8 ALT 34 AST 30. Transaminitis has normalized. Rest of preeclampsia labs within normal limits. Denies any persistent headache, vision changes, SOB, right upper quadrant/epigastric pain, or rapidly expanding edema. Physical exam: General: No acute distress Psych: Alert and oriented x4, full affect HEENT: Normocephalic, atraumatic Heart: Regular rate and rhythm, no murmur rub or gallop Lungs: Clear to auscultation bilaterally Skin: No lesions or rashes Lower extremities: No edema or erythema Plan - Continue with BP monitoring Qdaily for the next week - Follow up in clinic for her 2 week check and will review BP then - Reviewed pre-eclampsia symptoms and blood pressure parameters - Strict return precautions given Evaluation Laboratory results: Laboratory Tests 03/04/25 Range/Units 10:18 WBC 8.44 (4.50-11.00) K/uL RBC 4.54 (4.00-5.20) m/uL Hgb 12.4 (12.0-16.0) gm/dL Hct 38.7 (33.0-51.0) % MCV 85 (80-100) fL MCH 27 (26-34) pg MCHC 32 (32-36) gm/dL Plt Count 437 (140-440) K/uL BUN 20 (5-24) mg/dL Creatinine 0.8 (0.5-1.5) mg/dL Estimated GFR 103 ml/min AST 30 (12-35) U/L ALT 34 (4-35) U/L
== END 2025-03-05 00:05 | disposition home or self-care (01) ==
LOC: OB CLI 10:04 → OB 03-05 11:33
PROVIDERS: Visit Provider Obstetrics & Gynecology
DX: Z39.1 Encounter for care and examination of lactating mother (principal)
CPT/HCPCS: 36415; 82565; 84450; 84460; 84520; 85027; G0463